=== PATIENT | female | born 1965 | race Caucasian/White ===

== ENCOUNTER 2016-06-08 20:32 | Emergency (ER) | payer MEDICARE, MEDICAID ==
[~2016-06-08] VITALS: Ht 167.6 cm; Wt 60.0 kg
[~2016-06-08 20:32] MED LIST: DULO30CA2 PO; IBUP-1222 PO; IPRA4AER INH; LAMO150T PO; LISI-170 PO; LORA-446 PO; MULT1TAB9 PO; PRAV40TA PO; PREG75CA PO; TRAZ100T15 PO
[2016-06-08] MEDS ORDERED: HYDROmorphone 1 MG/ML, 1ML ONE ×2 (21:25→23:14)
[2016-06-08] MEDS ORDERED: KETOROLAC 30 MG/1 ML ONE (21:25)
[2016-06-08] MEDS ORDERED: DEXAMETHASONE 4 MG/ML, 1ML ONE ×2 (21:26→21:31)
[2016-06-08] MEDS: HYDROmorphone 1 MG/ML, 1ML IVPush PRN ×2 (21:28→23:18)
[2016-06-08] MEDS ORDERED: KETOROLAC 30 MG/1 ML IVPush ONE (21:30)
[2016-06-08] MEDS ORDERED: DEXAMETHASONE 4 MG/ML, 1ML IVPush ONE (21:30)
[2016-06-08] MEDS ORDERED: DIAZEPAM 5 MG/ML, 2ML IV ONE (23:30)
[2016-06-08] MEDS ORDERED: DIAZEPAM 5 MG/ML, 2ML ONE (23:36)
[2016-06-09 01:52] VITALS: BP 116/72
== END 2016-06-09 01:55 | disposition home or self-care (01) ==
LOC: ED 23:58
DX: M54.42 Lumbago with sciatica, left side (principal); I10 Essential (primary) hypertension; E78.5 Hyperlipidemia, unspecified; G89.29 Other chronic pain; M54.5 Low back pain; J44.9 Chronic obstructive pulmonary disease, unspecified
CPT/HCPCS: 72148; 96374; 96375; 99284; J1100; J1170; J1885; J3360

== ENCOUNTER → 2016-07-08 | Outpatient (CLI) | payer MEDICARE, MEDICAID ==
[~2016-07-08] MED LIST changes: +ARIP300S INJ; +DIAZ5TAB4 PO
[2016-07-08 10:51] LABS: BLOOD UREA NITROGEN 16 mg/dL (7-18)
[2016-07-08 10:54] LABS: ASPARTATE AMINO TRANSFERASE 17 U/L (15-37)
== END | disposition home or self-care (01) ==
LOC: STAR 09:32
PROVIDERS: ATTEND Neurological Surgery
DX: Z01.818 Encounter for other preprocedural examination (principal); M48.06 Spinal stenosis, lumbar region; Z87.891 Personal history of nicotine dependence; R79.1 Abnormal coagulation profile
CPT/HCPCS: 36415; 71020; 80053; 81003; 85025; 85610; 85730; 93005